=== PATIENT | female | born 1960 | race Caucasian/White ===

== ENCOUNTER 2017-06-13 10:18 | Emergency (ER) | payer BC ==
[~2017-06-13] VITALS: Ht 160 cm; Wt 69.4 kg
[2017-06-13 10:19] VITALS: Ht 160 cm; Wt 69.4 kg
[2017-06-13] MEDS ORDERED: KETOROLAC 15 MG INJ IV STA (10:47)
[2017-06-13] MEDS ORDERED: ONDANSETRON 4 MG INJ IV STA (10:47)
[2017-06-13] MEDS ORDERED: SOD CHLORIDE 0.9% 1,000 ML IV STA (10:47)
--- NOTE | 2017-06-13 10:52 | ERD ---
ER Documentation Chief Complaint Chief Complaint PELVIC PAIN RADIATING TO LEFT FLANK PAIN W/BLOOD IN URINE HPI This is a 56-year-old female with previous kidney stones who is presenting with left-sided moderate to severe sharp colicky flank pain radiating down into the left groin, associated with hematuria, beginning yesterday. Feels like previous kidney stones. The patient has not required any interventions in the past. She has been able to pass them on her own. The patient does not know of any exacerbating or alleviating factors. She has not attempted any medications to help with the pain. She has not been sick recently. She has not eaten anything out of the ordinary. The patient denies feeling sick recently. The patient denies fever or chills. The patient has had no headache or vision changes. The patient does not endorse neck pain. The patient denies lightheadedness or dizziness. The patient has had no chest pain or shortness of breath or trouble breathing. The patient denies nausea or vomiting. The patient denies changes to bowel movements. The patient has had no focal deficits. The patient has had no weakness or numbness or tingling to the face or extremities. ROS All systems reviewed and are negative except as per history of present illness. Medications Home Meds No Active Prescriptions or Reported Meds Allergies Allergies: Coded Allergies: No Known Allergy (Unverified , 01/29/14) PMhx/Soc History of Surgery: Yes (BTL) Anesthesia Reaction: No Hx Neurological Disorder: No Hx Respiratory Disorders: No Hx Cardiac Disorders: No Hx Psychiatric Problems: No Hx Miscellaneous Medical Probl: Yes (Kidney stones, Fibroids) Hx Alcohol Use: No Hx Substance Use: No Hx Tobacco Use: No FmHx Family History: No diabetes Physical Exam Vitals Vital Signs Date Time Temp Pulse Resp B/P Pulse Ox O2 Delivery O2 Flow Rate FiO2 06/13/17 11:10 98.5 53 18 126/83 100 06/13/17 10:19 97.6 60 20 158/73 100 Physical Exam Const: No apparent distress, well-developed, well-nourished Head: Normocephalic, Atraumatic Eyes: Normal Conjunctiva. Extraocular movements intact. Pupils equal, round and reactive to light ENT: Normal External Ears, Nose and Mouth. Neck: Full range of motion. No meningismus. Resp: Clear to auscultation bilaterally, No wheezes, rales or rhonchi Cardio: Regular rate and rhythm. No murmurs, rubs or gallops Abd: Soft, non distended. + Mild left-sided tenderness. normal bowel sounds Skin: No petechiae or rashes Back: No midline tenderness. Left sided CVA tenderness Ext: No cyanosis, or edema Neur: Awake and alert, oriented 4. Cranial nerves intact. No facial droop. Normal strength, sensation and coordination. Psych: Normal Mood and Affect Result Diagram: 06/13/17 1110 06/13/17 1110 Results 24 hrs Laboratory Tests Test 06/13/17 11:10 White Blood Count 7.910^3/ul Red Blood Count 4.5010^6/ul Hemoglobin 13.4g/dl Hematocrit 38.9% Mean Corpuscular Volume 86.4fl Mean Corpuscular Hemoglobin 29.8pg Mean Corpuscular Hemoglobin Concent 34.4g/dl Red Cell Distribution Width 11.7% Platelet Count 49302^3/UL Mean Platelet Volume 11.2fl Neutrophils % 82.2% Lymphocytes % 12.2% Monocytes % 4.4% Eosinophils % 0.5% Basophils % 0.3% Nucleated Red Blood Cells % 0.0/100WBC Neutrophils # 6.510^3/ul Lymphocytes # 1.010^3/ul Monocytes # 0.410^3/ul Eosinophils # 0.010^3/ul Basophils # 0.010^3/ul Nucleated Red Blood Cells # 0.010^3/ul Urine Color YELLOW Urine Clarity SLIGHTLY CLOUDY Urine pH 6.0 Urine Specific [place] 1.021 Urine Ketones NEGATIVEmg/dL Urine Nitrite NEGATIVEmg/dL Urine Bilirubin NEGATIVEmg/dL Urine Urobilinogen NEGATIVEmg/dL Urine Leukocyte Esterase NEGATIVELeu/ul Urine Microscopic RBC > 182/HPF Urine Microscopic WBC 5/HPF Urine Mucus FEW/HPF Urine Hemoglobin 3+mg/dL Urine Glucose NEGATIVEmg/dL Urine Total Protein 1+mg/dl Sodium Level 141mmol/L Potassium Level 4.6mmol/L Chloride Level 107mmol/L Carbon Dioxide Level 25mmol/L Anion Gap 14 Blood Urea Nitrogen 25mg/dl Creatinine 0.67mg/dl Glucose Level 126mg/dl Calcium Level 9.3mg/dl Total Bilirubin 0.4mg/dl Direct Bilirubin 0.00mg/dl Indirect Bilirubin 0.4mg/dl Aspartate Amino Transf (AST/SGOT) 32IU/L Alanine Aminotransferase (ALT/SGPT) 33IU/L Alkaline Phosphatase 63IU/L Total Protein 7.3g/dl Albumin 4.2g/dl Globulin 3.10g/dl Albumin/Globulin Ratio 1.35 Lipase 169U/L Current Medications Medications (Trade) Dose Ordered Sig/Doc Route PRN Reason Start Time Stop Time Status Last Admin Dose Admin Sodium Chloride (NS) 1,000 ml @ 1,000 mls/hr Q1H STAT IV 06/13/17 10:47 06/13/17 11:46 DC 06/13/17 11:30 Ondansetron HCl (Zofran Inj) 4 mg ONCE STAT IV 06/13/17 10:47 06/13/17 10:48 DC 06/13/17 11:31 Ketorolac Tromethamine (Toradol) 15 mg ONCE STAT IV 06/13/17 10:47 06/13/17 10:48 DC 06/13/17 11:31 Fentanyl (Sublimaze) 50 mcg ONCE ONCE IV 06/13/17 12:00 06/13/17 12:01 DC 06/13/17 12:06 Procedures/MDM MDM The patient's presentation warrants further investigation. I have high suspicion for a kidney stone. Blood work and urine testing will be obtained for further evaluation. The patient's symptoms are not consistent with a AAA. I have low suspicion for mesenteric ischemia. The patient has no changes to bowel movements. I do not suspect constipation or obstruction. The patient's signs and symptoms are not consistent with a perforated viscus. I have low suspicion for biliary disease or pancreatitis. LABS The patient's blood work was obtained and reviewed. The patient's CBC shows no leukocytosis. The patient is afebrile and does not appear systemically ill. I do not suspect a systemic infection. The patient is not anemic today. The patient's platelet count is unremarkable. The patient's CMP shows no signs of metabolic or electrolyte emergencies. The patient has a mild elevation in her BUN. This could be from dehydration. The patient will receive IV fluids in the emergency department. The patient has unremarkable renal and hepatic function testing. Lipase is within normal limits, further decreasing my suspicion for pancreatitis. The patient's urinalysis is consistent with hematuria. There are only a few microscopic white cells and no leuk esterase, no nitrites and no bacteria. I do not suspect a urinary tract infection at this time. TREATMENT/DISPOSITION The patient was given IV fluids, Toradol, Zofran, fentanyl while in the emergency department. Her symptoms resolved. The patient's overall presentation is consistent with left-sided nephrolithiasis. The patient will be sent home with a prescription for oxycodone for breakthrough pain. She will also be given a prescription for Flomax. She may otherwise use Tylenol or ibuprofen for discomfort. The patient should follow-up with her primary care physician in 2-3 days. Given the recurrence of her kidney stones, she may also benefit from urology evaluation. Her primary care physician may coordinate with the patient. At this time, I feel that the patient stable for discharge. The patient will need follow-up with his primary care physician in 2-3 days. The patient will be given strict precautions with which to return to the emergency department. The patient's blood pressure was elevated at greater than 120/80 while in the emergency department. The patient was otherwise stable with no evidence of hypertensive urgency or emergency or end organ damage. The patient does not require admission for blood pressure control. I have discussed with the patient the risks of hypertension. I have advised the patient to follow up with the primary care physician for outpatient monitoring and treatment for hypertension in 2-3 days. I have instructed the patient to return to the ER for any new or worsening symptoms including chest pain, shortness of breath, headache, blurred vision, confusion, nausea, vomiting or LOC. Disclaimer: Inadvertent spelling and grammatical errors are likely due to EHR/ dictation software use and do not reflect on the overall quality of patient care. Note that the electronic time recorded on this note does not necessarily reflect the actual time of the patient encounter. Departure Diagnosis: Primary Impression: Left nephrolithiasis Additional Impressions: Flank pain Hematuria Hematuria type: unspecified type Qualified Code: R31.9 - Hematuria, unspecified type Condition: LIDYA Valero MD Jun 13, 2017 10:52
[2017-06-13 11:48] LABS: BASOPHILS % 0.3 % (0.0-2.0); EOSINOPHILS % 0.5 % (0.0-7.0); HEMATOCRIT 38.9 % (37.0-47.0); HEMOGLOBIN 13.4 g/dl (12.0-16.0); LYMPHOCYTES % 12.2 % (15.0-51.0); MEAN CORPUSCULAR HEMOGLOBIN 29.8 pg (29.0-33.0); MEAN CORPUSCULAR HGB CONC 34.4 g/dl (32.0-37.0); MEAN CORPUSCULAR VOLUME 86.4 fl (82.0-101.0); MEAN PLATELET VOLUME 11.2 fl (7.4-10.4); MONOCYTE # 0.4 10^3/ul (0.3-0.9); MONOCYTES % 4.4 % (0.0-11.0); NEUTROPHIL # 6.5 10^3/ul (1.6-7.5); NEUTROPHILS % 82.2 % (39.0-77.0); PLATELET COUNT 180 10^3/UL (140-415); RED CELL DISTRIBUTION WIDTH 11.7 % (11.5-14.5); WHITE BLOOD COUNT 7.9 10^3/ul (4.8-10.8)
[2017-06-13] MEDS ORDERED: FENTAnyl 50 MCG/ML VIAL IV ONE (12:00)
[2017-06-13 12:11] LABS: ALBUMIN 4.2 g/dl (3.3-4.9); ALBUMIN/GLOBULIN RATIO 1.35; BILIRUBIN,INDIRECT 0.4 mg/dl (0-1.1); BILIRUBIN,TOTAL 0.4 mg/dl (0.2-1.3); CALCIUM 9.3 mg/dl (8.4-10.2); CREATININE 0.67 mg/dl (0.44-1.00); POTASSIUM 4.6 mmol/L (3.5-5.1); TOTAL PROTEIN 7.3 g/dl (6.1-8.1)
[2017-06-13 12:13] LABS: ADD UMIC YES; UR ASCORBIC ACID NEGATIVE (NEGATIVE); UR BILIRUBIN (Dip) NEGATIVE (NEGATIVE); UR BLOOD (Dip) 3+ mg/dL (NEGATIVE); UR CLARITY SLIGHTLY CLOUDY (CLEAR); UR COLOR YELLOW (YELLOW); UR GLUCOSE (Dip) NEGATIVE (NEGATIVE); UR KETONES (Dip) NEGATIVE (NEGATIVE); UR LEUKOCYTE ESTERASE (Dip) NEGATIVE Leu/ul (NEGATIVE); UR MUCUS FEW /HPF (NONE SEEN); UR NITRITE (Dip) NEGATIVE (NEGATIVE); UR RBC > 182 /HPF (0-5); UR SPECIFIC GRAVITY (Dip) 1.021 (1.003-1.030); UR TOTAL PROTEIN (Dip) 1+ mg/dl (NEGATIVE); UR UROBILINOGEN (Dip) NEGATIVE (NEGATIVE)
[2017-06-13] MEDS ORDERED: TAMS-14 PO (13:55)
[2017-06-13] MEDS ORDERED: OXYC5CAP17 PO (13:55)
[2017-06-13 14:31] VITALS: BP 147/75; PULSE 70; RESP 16; TEMP 98.5
== END 2017-06-13 14:35 | disposition home or self-care (01) ==
LOC: E/R 10:18
DX: N20.0 Calculus of kidney (principal); R31.9 Hematuria, unspecified
CPT/HCPCS: 36415; 80053; 81001; 83690; 85025; 87086; 96374; 96375; J1885; J2405; J3010; J7030; Z7502